=== PATIENT | male | born 1960 | race Caucasian/White ===

== ENCOUNTER 2025-03-27 06:26 | Day surgery (SDC) | payer OTHER, SELFPAY | END 2025-03-27 11:22 | disposition home or self-care (01) | LOC: GI 06:26 | PROVIDERS: ATTENDING PHYSICIAN Student in an Organized Health Care Education/Training Program | DX: Z12.11 Encounter for screening for malignant neoplasm of colon (principal); K64.8 Other hemorrhoids; Q43.8 Other specified congenital malformations of intestine; D12.2 Benign neoplasm of ascending colon; K62.1 Rectal polyp | CPT/HCPCS: 45385; 88305 ==